=== PATIENT | male | born 1940 | race African-American/Black ===

== ENCOUNTER 2018-08-21 13:38 | Outpatient (CLI) | payer MEDICARE, MEDICAID ==
[2018-08-21] MEDS ORDERED: Sodium Chloride 0.9% 15 ML NEB ONE (18:00)
--- NOTE | 2018-08-21 22:45 | HP ---
HISTORY OF PRESENT ILLNESS: Mr. Christy Elliott is a very pleasant 77-year-old gentleman who presents to the [facility] for evaluation of multiple ulcerations of the left lower leg. The patient states that he first developed a wound of his left lower leg in his 20s. He states that this wound healed completely. He states that he then developed the wounds of his left lower leg recently. According to records accompanying the patient today, Mr. Elliott developed the wounds 1 week prior to being seen by Dr. Bashir. The patient was seen by Dr. Bashir on 07/23/2018. At this time, the patient was placed on Bactrim DS and referred to the Wound Center for further evaluation and treatment. The patient states that the wounds began after he started wearing compression garments on his own. He states that after taking off the stocking over his left lower leg, he noted the presence of blisters, which progressed to ulcerations. The patient states that he has been caring for the wounds by cleansing with ivory soap drying the wounds and applying Neosporin. PAST MEDICAL HISTORY: 1. Hypertension. 2. Diabetes mellitus. PAST SURGICAL HISTORY: Negative. MEDICATIONS: 1. Aspirin. 2. Fluticasone propionate. 3. Valsartan. 4. Glucophage. 5. Simvastatin. 6. Antihypertensive. ALLERGIES: NO KNOWN DIAGNOSED ALLERGIES. SOCIAL HISTORY: Social history is significant for tobacco use of up to 5 to 6 cigarettes per day for approximately 20 years. The patient admits to the consumption of 4 to 5 drinks per day, also for approximately 20 years. The patient states that he has not consumed any alcohol over the past two months. FAMILY HISTORY: The patient states he is unsure of his family history. PHYSICAL EXAMINATION: VITAL SIGNS: Temperature 97.4, pulse 87, respirations 19, and blood pressure 104/57, Accu-Chek 156. GENERAL: A 77-year-old gentleman, sitting on table in examination room, in no acute distress. HEENT: Normocephalic and atraumatic. NECK: No nuchal rigidity. CHEST: Clear to auscultation. CV: Regular rate and rhythm. ABDOMEN: Soft. EXTREMITIES: Multiple ulcerations are present over the left lower leg. Granulation tissue is present within the margins of each ulceration. No purulent drainage is associated with any of the wounds. No erythema of the skin surrounding any of the wounds is present. No maceration of the skin of the periwound of any of the wounds is noted. A dorsalis pedis pulse or posterior tibial pulse is not palpable on the right or on the left. All pulses are, however, audible by Doppler. No significant edema of the right or left lower extremity is appreciated on today's exam. NEURO: Grossly nonfocal. ASSESSMENT AND PLAN: 1. Chronic venous hypertension with ulcers. The healing of the ulcerations appears to be compromised by peripheral vascular disease. The patient will be referred for evaluation and treatment of left lower extremity arterial insufficiency. In the meantime, the patient is to begin dressing changes of Medihoney, followed by 4x4s and Kerlix. These dressing changes are to be performed on a daily basis after cleansing and irrigation. The patient states he will be performing his own dressing changes. The patient has been asked to discontinue the use of ivory soap. No antibiotics will be prescribed today based upon the appearance of the wounds. I will see Mr. Elliott again after evaluation for left lower extremity arterial insufficiency and any necessary treatment is complete. The patient understands and is in agreement with the preceding treatment plan. The patient has been asked to contact the clinic if he does not receive an appointment for vascular evaluation in the near future. 2. Hypertension. 3. Diabetes mellitus. The patient's Accu-Chek in clinic today is 156. The patient has been told that for optimal wound healing his blood glucoses should remain below 150. Job ID: [id number]
== END 2018-08-21 13:39 | disposition home or self-care (01) ==
LOC: WCC 13:38
PROVIDERS: ATTEND Family Medicine
DX: I87.312 Chronic venous hypertension (idiopathic) with ulcer of left lower extremity (principal); L97.529 Non-pressure chronic ulcer of other part of left foot with unspecified severity; I10 Essential (primary) hypertension; E11.621 Type 2 diabetes mellitus with foot ulcer
CPT/HCPCS: 36416; 97602; 99203; A4218; G0463

== ENCOUNTER 2018-10-23 08:35 | Outpatient (CLI) | payer MEDICARE, MEDICAID ==
--- NOTE | 2018-10-23 10:05 | PRG ---
DATE OF SERVICE: 10/23/2018 HISTORY: Mr. Christy Elliott is a very pleasant 78-year-old gentleman, who presents to the wound center for evaluation of multiple ulcerations of the left lower leg. At the time of the patient's initial presentation to the wound center, Mr. Elliott stated that he first developed a wound of his left lower leg in his 20s. He stated that this wound healed completely. He stated that he then developed the wounds of his left lower leg, for which he was seen in the wound center just prior to his initial visit to the wound center. According to records accompanying the patient, Mr. Elliott developed the wounds 1 week prior to being seen by Dr. Bashir on 07/23/2018. At this time, the patient was placed on Bactrim DS and referred to the wound center for further evaluation and treatment. The patient stated that the wounds began after he started wearing compression garments on his own. He stated that after taking off the stocking over his left lower leg, he noted the presence of blisters, which progressed ulcerations. The patient stated that he had been caring for the wounds by cleansing with ivory soap, drying the wounds, and applying Neosporin. After being seen in the wound center, the patient was placed on dressing changes of Medihoney. The patient states that he ran out of Medihoney and began performing dressing changes of Xeroform. The patient was contacted by Cardiovascular Surgery, but apparently declined the scheduling of an appointment for evaluation for left lower extremity arterial insufficiency. PHYSICAL EXAMINATION: VITAL SIGNS: Temperature 97.6, pulse 75, respirations 16, and blood pressure 171/75. Accu-Chek 144. EXTREMITIES: Multiple ulcerations are present over the left lower leg. Granulation tissue is present within the margins of 2 of the ulcerations. No purulent drainage is associated with any of the wounds. No erythema of the skin surrounding any of the wounds is present. No maceration of the skin of the periwound of any of the wounds is noted. Two of the ulcerations have increased in their dimensions since the patient was last seen in the wound center. A dorsalis pedis pulse or posterior tibial pulse is not palpable on the left. No significant edema of the left lower extremity is appreciated on exam today. ASSESSMENT AND PLAN: 1. Chronic venous hypertension with ulcers. I have explained to the patient that the healing of the ulcerations appears to be complicated by inadequate arterial circulation. The patient agrees to be seen by Cardiovascular Surgery for evaluation and treatment of left lower extremity arterial insufficiency. The patient has been given an appointment with Cardiovascular Surgery on 10/29/2018 at 3:15 p.m. In the meantime, the patient is to continue dressing changes of Xeroform followed by Matthew. Arrangements will also be made for the home delivery of dressing supplies. The preceding dressing changes are to be performed on a daily basis after cleansing and irrigation. The patient states he will continue to perform his own dressing changes. I will see Mr. Elliott again after evaluation for left lower extremity arterial insufficiency and any necessary treatment is complete. Again, the patient states that he understands and is in agreement with the preceding treatment plan. 2. Hypertension. 3. Diabetes mellitus. The patient's Accu-Chek in clinic today is 144. The patient has been reminded that for optimal wound healing, his blood glucoses should remain below 150. Job ID: [id number]
== END 2018-10-23 08:36 | disposition home or self-care (01) ==
LOC: WCC 08:35
PROVIDERS: ATTEND Family Medicine
DX: I87.312 Chronic venous hypertension (idiopathic) with ulcer of left lower extremity (principal); E11.622 Type 2 diabetes mellitus with other skin ulcer; L97.929 Non-pressure chronic ulcer of unspecified part of left lower leg with unspecified severity
CPT/HCPCS: 36416

== ENCOUNTER 2018-10-28 15:10 | Outpatient (CLI) | payer MEDICARE, MEDICAID ==
[~2018-10-28 15:10] MED LIST: Iopamidol 370 76% 100 ML VIAL ONE
--- NOTE | 2018-10-28 16:17 | CT ---
CT arteriogram abdomen and pelvis with IV contrast and 3-D imaging CT arteriogram runoff bilateral lower extremity with IV contrast and 3-D imaging HISTORY: Vascular disease. Claudication. Abnormal sonogram. FINDINGS: Mild parenchymal scarring and tubular ectasia at the lung bases. Multiple peripherally nodu lar enhancing lesions within each liver lobe have the appearance of hemangiomas. Small hyperdense focus within the dependent portion of the gallbladder neck. Degenerative changes throughout the lumba r spine. Calcification with the abdominal aorta and visceral arteries. There remain patent. Right: There are multiple areas of atherosclerosis and mild narrowing without greater than 50% stenos is throughout the course of the right common and external iliac, femoral, and popliteal arteries. Calcification and narrowing are present at the trifurcation without complete occlusion. Three-vessel runoff to the right lower leg. The proximal portion of the right internal iliac artery remains unopacified with reconstitution after approximately 2 cm. Left: Common iliac artery is patent. Atherosclerosis with short segment focus of approximately 60% st enosis within the external iliac artery. Multiple areas of approximately 50% stenosis along the left common femoral and femoral arteries. Near the level of the adductor hiatus, there is a 2.6 cm lo ng segment of distal femoral artery that is not opacified. Proximal popliteal artery is reconstituted. Three-vessel runoff to the left lower leg. 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 Cholelithiasis.
== END 2018-10-28 15:11 | disposition home or self-care (01) ==
LOC: CT 15:10
PROVIDERS: ATTEND Thoracic Surgery (Cardiothoracic Vascular Surgery)
DX: I70.203 Unspecified atherosclerosis of native arteries of extremities, bilateral legs (principal)
CPT/HCPCS: 75635; 82565; Q9967

== ENCOUNTER 2018-11-18 05:54 | Outpatient (CLI) | payer MEDICARE, MEDICAID ==
[2018-11-18 12:05] LABS: Hemoglobin 9.2 g/dL (14.0-18.0); Mean Corpuscular HGB CONC 30.5 g/dL (32.0-36.0); Mean Corpuscular Hemoglobin 25.1 pg (27.0-31.0); Mean Corpuscular Volume 82.1 fL (78.0-98.0); Mean Platelet Volume 6.1 fL (7.4-10.4); Platelet Count 461 thou/uL (130-400); RBC Distribution Width 16.3 % (11.5-14.5); Red Blood Cell (RBC) Count 3.68 mill/uL (4.70-6.10); White Blood Cell (WBC) Count 7.4 thou/uL (4.8-10.8)
[2018-11-18 12:32] LABS: Anion Gap 10 mmol/L (10-20); BUN (Urea Nitrogen) 12 mg/dL (8.4-25.7); Calc. Creatinine Clearance 0 mL/min (70-130); Calcium 9.3 mg/dL (7.8-10.44); Carbon Dioxide 26 mmol/L (23-31); Chloride 102 mmol/L (98-107); Estimated GFR-MDRD 74; Glucose 104 mg/dL (83-110); Sodium 134 mmol/L (136-145)
== END 2018-11-18 05:55 | disposition home or self-care (01) ==
LOC: LABBT 05:54
PROVIDERS: ATTEND Thoracic Surgery (Cardiothoracic Vascular Surgery)
DX: Z01.812 Encounter for preprocedural laboratory examination (principal); I73.9 Peripheral vascular disease, unspecified
CPT/HCPCS: 80048; 85027

== ENCOUNTER 2018-11-20 06:09 | Day surgery (SDC) | payer MEDICARE, MEDICAID ==
[2018-11-18 11:21] VITALS: BMI 29.2
[2018-11-20] MEDS ORDERED: Lidocaine 1% (PF) 30 ML VIAL ONE (06:29)
[2018-11-20] MEDS ORDERED: Heparin 10,000 UNITS/1 ML VIAL ONE (07:16)
[2018-11-20] MEDS ORDERED: Clopidogrel Bisulfate 300 MG TAB ONE (07:52)
[2018-11-20] MEDS ORDERED: Protamine Sulfate 50 MG/5 ML VIAL ONE (08:12)
--- NOTE | 2018-11-20 08:38 | OP ---
DATE OF PROCEDURE: 11/20/2018 PREOPERATIVE DIAGNOSIS: Nonhealing wounds, left lower extremity. PROCEDURES PERFORMED: Aortogram bilateral lower extremity runoff, stenting right external iliac artery with 8 x 40 Innova posted with an 8 mm balloon attempted crossing of the left superficial femoral artery chronic total occlusion. CONTRAST: 44. FLUORO: 18.8. DESCRIPTION OF PROCEDURE: After prepping and draping, ultrasound-guided puncture of the right common femoral artery was carried out. Dilator and sheath were placed , angiography obtained of the right iliac system. Contra catheter was then placed over the wire and aortogram obtained. Following which, a wire was guided over the iliac bifurcation using the Contra catheter and runoff the left leg was obtained. Following 10,000 units of heparin, a 6-[place] destination sheath was placed over a Magic Torque wire and parked into the left superficial femoral artery. Using a frontrunner angled Jensen catheter and angled Glidewire attempts to cross the total occlusion were not successful. Following this, attention was then turned to pulling the destination sheath back into the distal right external iliac artery. Following this, an 8 x 40 Innova stent was deployed and posted with an 8 x 4 balloon. There was no residual stenosis and an 8 x 2 balloon was then inflated to 12 atmospheres. Following this, there was still some residual stenosis, but the original lesion which appeared to be about 75% to 80% was reduced to about 40%. The remainder of the exam showed some mild atherosclerotic stenosis in the bilateral common iliac arteries. The left superficial femoral artery had a proximal disease of about 40% was complete occlusion and there was three-vessel runoff below the knee. Job ID: [id number] [facility]
[2018-11-20] MEDS ORDERED: hydrALAZINE 20 MG/ML VIAL ONE (08:39)
[2018-11-20] MEDS ORDERED: Iopamidol 370 76% 50 ML VIAL FS ONE (13:56)
== END 2018-11-20 15:30 | disposition home or self-care (01) ==
LOC: CCL 06:09
PROVIDERS: ATTEND Thoracic Surgery (Cardiothoracic Vascular Surgery)
PROC: 047J3DZ Dilation of Left External Iliac Artery with Intraluminal Device, Percutaneous Approach (ICD-10-PCS; principal; 2018-11-20)
DX: E11.51 Type 2 diabetes mellitus with diabetic peripheral angiopathy without gangrene (principal); I70.248 Atherosclerosis of native arteries of left leg with ulceration of other part of lower leg; L97.829 Non-pressure chronic ulcer of other part of left lower leg with unspecified severity; I70.201 Unspecified atherosclerosis of native arteries of extremities, right leg; I70.92 Chronic total occlusion of artery of the extremities; F17.210 Nicotine dependence, cigarettes, uncomplicated; I10 Essential (primary) hypertension; E78.00 Pure hypercholesterolemia, unspecified; Z79.02 Long term (current) use of antithrombotics/antiplatelets; Z79.82 Long term (current) use of aspirin; Z79.84 Long term (current) use of oral hypoglycemic drugs; Z79.899 Other long term (current) drug therapy
CPT/HCPCS: 37226; 76942; 85347; C1725; C1769; C1887; J0360; J1644; J2001; J2720; Q9967

== ENCOUNTER 2022-08-21 12:01 | Outpatient (CLI) | payer OTHER, MEDICAID ==
[2022-08-21 13:30] LABS: #Eosinphils 0.1 10x3/uL (0.0-0.5); #Monocytes 0.5 10x3/uL (0.0-1.1); #Neutrophils 3.1 10x3/uL (1.5-8.4); %Basophils 0.6 % (0.0-2.0); %Lymphocytes 23.2 % (18.0-47.0); %Monocytes 9.8 % (0.0-10.0); %Neutrophils 65.2 % (40.0-75.0); Hemoglobin 9.8 g/dL (13.5-17.5); Mean Corpuscular HGB CONC 31.4 g/dL (32.0-36.0); Mean Corpuscular Hemoglobin 30.3 pg (27.0-33.0); Mean Corpuscular Volume 96.6 fl (81.2-95.1); Mean Platelet Volume 8.7 fl (7.4-10.4); Platelet Count 326 10x3/uL (150-450); Red Blood Cell (RBC) Count 3.23 10x6/uL (4.32-5.72); White Blood Cell (WBC) Count 4.8 10x3/uL (3.5-10.5)
[2022-08-21 13:49] LABS: Anion Gap 14 mmol/L (10-20); BUN (Urea Nitrogen) 17 mg/dL (8.4-25.7); Calc. Creatinine Clearance 0 mL/min (70-130); Calcium 9.1 mg/dL (7.8-10.44); Carbon Dioxide 25 mmol/L (23-31); Chloride 102 mmol/L (98-107); Estimated GFR 55; Glucose 143 mg/dL (83-110); Potassium 4.1 mmol/L (3.5-5.1); Sodium 137 mmol/L (136-145)
== END 2022-08-21 12:02 | disposition home or self-care (01) ==
LOC: LABBT 12:01
PROVIDERS: ATTEND Specialist
DX: Z01.818 Encounter for other preprocedural examination (principal); K62.89 Other specified diseases of anus and rectum
CPT/HCPCS: 71046; 80048; 85025